=== PATIENT | male | born 1950 | race Caucasian/White ===

== ENCOUNTER 2020-07-26 09:34 | Outpatient (CLI) | payer MEDICARE, SELFPAY ==
--- NOTE | ~2020-07-26 | CT_ITS ---
EXAMINATION: CT lung screening DATE: 07/26/2020 10:21 INDICATION: Personal history of nicotine dependence, current smoker with 30 pack year history TECHNIQUE: Computed tomography (CT) of the chest was performed without intravenous contrast. The dose -length product (DLP) was 144.83 mGy-cm. Automated exposure control and iterative reconstruction tech [employer] were employed. COMPARISON: None FINDINGS: There is mild emphysema. A 3 mm nodule is present in the left lower lobe on image 90. Calci fied pulmonary nodules and calcified right hilar lymph nodes are consistent with old granulomatous di sease. There are no focal airspace opacities. No pleural effusion or pneumothorax is identified. No p athologically enlarged thoracic lymph nodes are identified. The heart size is normal. Calcified coron nicolas artery atherosclerosis is noted. There is a 2.5 cm cyst in the left hepatic lobe. There are bridg ing osteophytes at multiple levels in the spine, consistent with diffuse idiopathic skeletal hyperost osis (DISH). IMPRESSION: 1. Lung-RADS category 2: Benign appearance or behavior. Continue annual screening with noncontrast lo w-dose chest CT in 12 months. Reviewed, dictated and finalized at location A. [employer] IMPRESSION: 1. Lung-RADS category 2: Benign appearance or behavior. Continue annual screeni ng with noncontrast low-dose chest CT in 12 months.
== END 2020-07-26 09:35 | disposition home or self-care (01) ==
PROVIDERS: PCP Family Medicine; Visit Provider Physician Assistant
DX: Z12.2 Encounter for screening for malignant neoplasm of respiratory organs (principal); Z87.891 Personal history of nicotine dependence
CPT/HCPCS: 71271

== ENCOUNTER → 2020-09-03 01:43 | Outpatient (CLI) | payer MEDICARE, SELFPAY ==
[2020-09-03 20:12] LABS: SARS-CoV-2 RNA PCR Negative
== END ==
PROVIDERS: PCP Family Medicine; Visit Provider Internal Medicine Gastroenterology
DX: Z01.812 Encounter for preprocedural laboratory examination (principal); Z20.822 Contact with and (suspected) exposure to COVID-19
CPT/HCPCS: C9803; U0003; U0005

== ENCOUNTER 2020-09-06 02:43 | Day surgery (SDC) | payer MEDICARE, SELFPAY ==
[2020-08-23 13:47] VITALS: BMI 28.3
--- NOTE | 2020-09-05 09:52 | WPDANESEPPF ---
Anes - Initial Pre Proc Eval Procedure: Operation Date: 09/06/20 07:30 Proposed Procedures p Screening Colonoscopy - Brett Granda MD Date/Time: 09/05/20 09:52 Surgeon: Brett Granda MD Pre Op Diagnosis: neoplasm screening Patient Data Age: 70 Gender: M Height: 1.7 m Weight: 82 kg Allergies Allergy/AdvReac Type Severity Reaction Status Date / Time fire ant Allergy Unknown anaphylaxis Verified 09/06/20 06:21 bee venom protein (honey bee) Allergy Unknown Verified 09/06/20 06:21 Home Medications Medication Instructions Recorded Confirmed Type aspirin 81 mg tablet,delayed 81 mg PO DAILY 04/18/19 08/23/20 History release epinephrine 0.3 mg/0.3 mL 0.3 mg IM ONCE PRN #2 each 01/31/20 08/23/20 Rx injection, auto-injector omega-3 fatty acids 1,000 mg 1,000 mg PO BID 02/10/20 08/23/20 History capsule metformin 500 mg tablet 500 mg PO TID #270 tablet 04/23/20 08/23/20 Rx rosuvastatin 10 mg tablet 10 mg PO DAILY #90 tablet 07/11/20 08/23/20 Rx sod picosulf 10 mg-magnes 3.5 160 ml PO BID #160 ml 08/15/20 Rx gram-citric 12 gram/160 mL oral solution Patient hx anesthesia problems: none Family hx anesthesia problems: none PMFSH Past Medical History Medical History (Updated 09/05/20 @ 09:54 by Leeroy Gambino MD) Abnormal colonoscopy (~08/20/11) Alcohol abuse Essential (primary) hypertension Hepatitis C antibody test negative (~07/13/17) Metabolic syndrome Mixed hyperlipidemia Nicotine dependence Obstructive sleep apnea (adult) (pediatric) Type 2 diabetes mellitus with ophthalmic complication, without long-term current use of insulin Family History Family History Other Family history of cardiovascular disease Social History Social History (Updated 07/13/20 @ 09:33 by Tierra Lacy PA-C) Smoking packs per day: 2 Smoking cigarettes per day: 40.0 Years smoked: 50 Smoking pack-years: 100.00 Smoking status: Current every day smoker Tobacco type: cigarettes Alcohol intake: current Alcohol use details: 1 bottle wine daily Living arrangements: alone Gender identity (if verbalized by the patient): Male Spiritual care concerns: No Anes - Eval Final PreProcedure Day of Procedure 09/05/20 09:52 Patient weight: overweight Heart: regular rate and rhythm Lungs: clear to auscultation and normal air movement Airway: Mallampati scale class II Neurological: alert and oriented Last oral intake: >/= 8 hours ASA classification: III Emergent: no Anesthetic plan: proceed Anesthesia type and monitoring: general GIVS Informed Consent: The patient's anesthetic plan and its attendant risks and benefits were discussed with the patient/family/POA. Questions were solicited and answers provided to the satisfaction of the patient/family/POA.
[2020-09-06 06:22] VITALS: BP 145/69; PULSE 75; RESP 18; TEMP 35.9; O2SAT 99; BMI 28.2
[2020-09-06] MEDS: LACTATED RINGERS 1,000 ML 150 ML IV CONT (06:35)
[2020-09-06 06:37] LABS: Glucose Point of Care 185 (65-105)
--- NOTE | 2020-09-06 07:26 | PM.HPGS ---
History of Present Illness History of Present Illness Consent: Risks, benefits, and alternatives have been discussed and questions answered. Patient agrees to proceed with procedure. Chief complaint: neoplasm screening Narrative: Chava Hamilton is a 70 year old male referred for colon cancer screening. He believes that he had 2 polyps removed about 9 years ago Review of Systems Review of Systems: All systems reviewed & are unremarkable except as noted in HPI and below PMFSH Past Medical History Medical History Abnormal colonoscopy (~08/20/11) Alcohol abuse Essential (primary) hypertension Hepatitis C antibody test negative (~07/13/17) Metabolic syndrome Mixed hyperlipidemia Nicotine dependence Obstructive sleep apnea (adult) (pediatric) Type 2 diabetes mellitus with ophthalmic complication, without long-term current use of insulin Family History Family History Other Family history of cardiovascular disease Social History Social History Smoking packs per day: 2 Smoking cigarettes per day: 40.0 Years smoked: 50 Smoking pack-years: 100.00 Smoking status: Current every day smoker Tobacco type: cigarettes Alcohol intake: current Alcohol use details: 1 bottle wine daily Living arrangements: alone Gender identity (if verbalized by the patient): Male Spiritual care concerns: No Meds Home Medications and Allergies Home Medications Medication Instructions Recorded Confirmed Type aspirin 81 mg tablet,delayed 81 mg PO DAILY 04/18/19 08/23/20 History release epinephrine 0.3 mg/0.3 mL 0.3 mg IM ONCE PRN #2 each 01/31/20 08/23/20 Rx injection, auto-injector omega-3 fatty acids 1,000 mg 1,000 mg PO BID 02/10/20 08/23/20 History capsule metformin 500 mg tablet 500 mg PO TID #270 tablet 04/23/20 08/23/20 Rx rosuvastatin 10 mg tablet 10 mg PO DAILY #90 tablet 07/11/20 08/23/20 Rx sod picosulf 10 mg-magnes 3.5 160 ml PO BID #160 ml 08/15/20 Rx gram-citric 12 gram/160 mL oral solution Allergies Allergy/AdvReac Type Severity Reaction Status Date / Time fire ant Allergy Unknown anaphylaxis Verified 09/06/20 06:21 bee venom protein (honey bee) Allergy Unknown Verified 09/06/20 06:21 Vital Signs Vital Signs - 24 hr 09/06/20 06:22 Temperature 35.9 C L Pulse Rate 75 Respiratory Rate 18 Blood Pressure 145/69 H Pulse Oximetry 99 Exam Resp: Auscultation: clear to auscultation bilaterally Cardio: Rate: regular rate Rhythm: regular rhythm GI: GI Palp: Yes Soft to palpation and No Tenderness to palpation present (GI) Assessment and Plan Assessment and plan (1) Colon cancer screening: Code(s): Z12.11 - Encounter for screening for malignant neoplasm of colon Status: Acute Assessment and Plan: Colonoscopy with possible biopsy or polypectomy or cautery or injection of substances.
[2020-09-06 07:50] VITALS: BP 101/74; PULSE 74; RESP 19; O2SAT 95
[2020-09-06 08:00] VITALS: BP 121/64; PULSE 73; RESP 21; O2SAT 100
[2020-09-06 08:10] VITALS: BP 111/84; PULSE 70; RESP 20; O2SAT 100
== END 2020-09-06 08:22 | disposition home or self-care (01) ==
PROVIDERS: PCP Family Medicine; Visit Provider Internal Medicine Gastroenterology
PROC: 0DJD8ZZ Inspection of Lower Intestinal Tract, Via Natural or Artificial Opening Endoscopic (ICD-10-PCS; CPT 45378; principal; 2020-09-06 07:30)
DX: Z12.11 Encounter for screening for malignant neoplasm of colon (principal); K57.30 Diverticulosis of large intestine without perforation or abscess without bleeding; D12.5 Benign neoplasm of sigmoid colon; K63.5 Polyp of colon; K62.1 Rectal polyp; I10 Essential (primary) hypertension; E11.39 Type 2 diabetes mellitus with other diabetic ophthalmic complication; G47.33 Obstructive sleep apnea (adult) (pediatric); E78.2 Mixed hyperlipidemia; Z79.84 Long term (current) use of oral hypoglycemic drugs; Z79.82 Long term (current) use of aspirin; F17.210 Nicotine dependence, cigarettes, uncomplicated
CPT/HCPCS: 45380; 45385; 88305; J2704; J7120

== ENCOUNTER 2021-10-24 08:38 | Emergency (ER) | payer MEDICARE, SELFPAY ==
[2021-10-24 08:40] VITALS: BP 186/86; PULSE 88; RESP 16; TEMP 36.3; O2SAT 99
[2021-10-24 09:03] LABS: Basophils Absolute Auto 0.1 K/mm3 (0.0-0.1); Basophils Percent Auto 0.6 % (0.2-1.2); Eosinophils Absolute Auto 0.1 K/mm3 (0-0.3); Eosinophils Percent Auto 1.7 % (0-4.4); Hematocrit 44.8 % (42.0-52.0); Hemoglobin 14.8 g/dL (14.0-18.0); Immature Granulocyte Absolute 0.03 K/mm3 (0.00-0.031); Immature Granulocyte Percent A 0.4 % (0-0.5); Lymphocytes Absolute Auto 1.58 K/mm3 (0.9-3.2); Lymphocytes Percent Auto 20.3 % (18.3-44.2); Mean Corpuscular Hemoglobin 32.1 pg (26-34); Mean Corpuscular Volume 97.2 fl (80-100); Mean Platelet Volume 9.9 fl (7.4-10.4); Monocytes Absolute Auto 0.6 K/mm3 (0.1-0.6); Monocytes Percent Auto 7.8 % (2.6-8.5); Neutrophils Absolute Auto 5.4 K/mm3 (1.3-6.7); Neutrophils Percent Auto 69.2 % (45.5-73.1); Platelet Count Result 177 k/mm3 (150-375); Red Blood Count 4.61 M/mm3 (4.6-6.20); Red Cell Distribution Width 12.3 % (11.5-14.5); White Blood Count 7.8 K/mm3 (4.5-10.0)
--- NOTE | 2021-10-24 09:06 | ED.GENADULT ---
HPI - General Adult General Chief complaint: Unspecified Stated complaint: LUMP ON MY THROAT Time Seen by Provider: 10/24/21 09:00 History of Present Illness HPI narrative: 71-year-old male presents the emergency room for evaluation of a lump on his throat. Patient states that he woke up with a pruritic, nonpainful, red, mobile lump on his throat. Patient denies any injury or trauma. Denies fever. Denies purulent discharge. Denies difficulty breathing, shortness of breath, or dysphagia. Related Data Home Medications Medication Instructions Recorded Confirmed aspirin 81 mg tablet,delayed 81 mg PO DAILY 04/18/19 06/14/21 release omega-3 fatty acids 1,000 mg 1,000 mg PO BID 02/10/20 06/14/21 capsule Allergies Allergy/AdvReac Type Severity Reaction Status Date / Time fire ant Allergy Unknown anaphylaxis Verified 10/24/21 08:48 bee venom protein (honey bee) Allergy Unknown Verified 10/24/21 08:48 Review of Systems Review of Systems: All systems reviewed & are unremarkable except as noted in HPI and below PMFSH Past Medical History Medical History Abnormal colonoscopy (~08/20/11) Alcohol abuse Essential (primary) hypertension Hepatitis C antibody test negative (~07/13/17) Metabolic syndrome Mixed hyperlipidemia Nicotine dependence Obstructive sleep apnea (adult) (pediatric) Type 2 diabetes mellitus with ophthalmic complication, without long-term current use of insulin Family History Family History Other Family history of cardiovascular disease Social History Social History Smoking packs per day: 2 Smoking cigarettes per day: 40.0 Years smoked: 50 Smoking pack-years: 100.00 Tobacco type: cigarettes Alcohol intake: current Alcohol use details: 1 bottle wine daily Gender identity (if verbalized by the patient): Male Spiritual care concerns: No Exam Narrative: GENERAL: Well-appearing, well-nourished, and in no acute distress. HEAD: Normocephalic, atraumatic. EYES: PERRLA and EOMI. ENT: Nares clear, no rhinorrhea or epistaxis. Mucous membranes moist. Oropharynx without tonsillar hypertrophy exudate or other lesions. Bilateral TMs pearly pierre nonbulging NECK: Supple. No adenopathy or masses. No carotid bruits or JVD CHEST: Clear to auscultation. No respiratory distress. No wheezes rales or rhonchi HEART: Regular rate and rhythm. No murmur heard. Normal peripheral pulses. EXTREMITIES: Normal range of motion. No edema. SKIN: Warm, dry, no rash. NEURO: No focal deficits. Alert and oriented x3. PSYCH: Normal mood and affect. HENMT: Head images: 1. mobile, erythematous, fluctuant mass with a centralized punctum ajay Course Vital Signs Vital signs: Vital Signs Temperature 36.3 C L 10/24/21 08:40 Pulse Rate 88 10/24/21 08:40 Respiratory Rate 16 10/24/21 08:40 Blood Pressure 186/86 H 10/24/21 08:40 Pulse Oximetry 99 10/24/21 08:40 Temperature 36.3 C L 10/24/21 08:40 Pulse Rate 88 10/24/21 08:40 Respiratory Rate 16 10/24/21 08:40 Blood Pressure 186/86 H 10/24/21 08:40 Pulse Oximetry 99 10/24/21 08:40 Medical Decision Making MDM Narrative Medical decision making narrative: 71-year-old male presented the emergency room complaints of a pruritic, painless, fluctuant lump on the anterior side of his neck. On examination, plus punctum ajay. Suspect this is an insect bite with localized soft tissue allergic reaction. Patient was given a course of Solu-Medrol, Benadryl, and Pepcid. Approximately 1 hour following medication administration, soft tissue swelling had decreased in size, and patient states pruritus is resolved. Vital Signs Vital Signs: Vital Signs Temperature 36.3 C L 10/24/21 08:40 Pulse Rate 88 10/24/21 08:40 Respiratory Rate 16 10/24/21 08:40 Blood P
[2021-10-24 09:17] LABS: Alanine Aminotransferase 31 U/L (6-50); Alkaline Phosphatase 97 U/L (38-126); Anion Gap 11 mmol/L (8-16); Aspartate Amino Transferase 41 U/L (17-59); Bilirubin,Total 0.8 mg/dL (0.2-1.3); Blood Urea Nitrogen 12 mg/dL (9-20); Calcium 9.5 mg/dL (8.4-10.2); Carbon Dioxide 21 mmol/L (22-30); Chloride 102 mmol/L (98-107); Estimated CRCL calculation 66 ml/min; Estimated Glomerular Filt Rate > 60; Glucose 183 mg/dL (65-110); Potassium 4.5 mmol/L (3.4-5.0); Sodium 134 mmol/L (137-145)
[2021-10-24] MEDS: diphenhydrAMINE HCl INJ 50 MG/ML VIAL 25 MG IV PUSH (09:33)
[2021-10-24] MEDS: FAMOTIDINE 20 MG/2 ML VIAL IV PUSH (09:33)
[2021-10-24] MEDS: methylPREDNISolone SOD SUCC 125 MG VIAL IV PUSH (09:33)
[2021-10-24 10:45] VITALS: BP 144/87; PULSE 80; RESP 15; O2SAT 100
== END 2021-10-24 10:47 | disposition home or self-care (01) ==
PROVIDERS: Emergency Medicine; Emergency Provider Nurse Practitioner Family; PCP Family Medicine
DX: S10.16XA Insect bite (nonvenomous) of throat, initial encounter (principal); W57.XXXA Bitten or stung by nonvenomous insect and other nonvenomous arthropods, initial encounter
CPT/HCPCS: 36415; 80053; 85025; 96374; 96375; 99284; J1200; J2930